=== PATIENT | male | born 1965 ===

== ENCOUNTER 2022-07-27 10:33 | Outpatient (CLI) | payer OTHER | END 2022-07-27 10:35 | disposition home or self-care (01) | LOC: SONOGRAMA 10:33 | PROVIDERS: ATTEND Pathology Anatomic Pathology & Clinical Pathology | DX: D34 Benign neoplasm of thyroid gland (principal); E04.9 Nontoxic goiter, unspecified; E07.9 Disorder of thyroid, unspecified; E04.1 Nontoxic single thyroid nodule ==